=== PATIENT | female | born 1980 | race Caucasian/White ===

== ENCOUNTER → 2020-10-24 | Outpatient (CLI) | payer BC ==
[2020-10-24 15:55] LABS: Basophils # (A) 0.04 X 10*3/uL (0.00-0.10); Basophils % (A) 0.6 %; Eosinophils # (A) 0.13 X 10*3/uL (0.04-0.35); Eosinophils % (A) 1.9 %; HCT 43.7 % (37.2-46.3); HGB 14.3 g/dL (12.0-15.0); Lymphocytes # (A) 2.27 X 10*3/uL (0.90-5.00); Lymphocytes % (A) 32.9 %; MCH 29.7 pg (27.0-32.0); MCHC 32.7 g/dL (32.0-37.0); MCV 90.9 fL (80.0-97.0); Monocytes # (A) 0.61 X 10*3/uL (0.20-1.00); Monocytes % (A) 8.9 %; Neutrophils # (A) 3.83 X 10*3/uL (1.80-7.70); Neutrophils % (A) 55.6 %; Platelet Count 313 X 10*3/uL (140-440); RBC 4.81 X 10*6/uL (4.10-5.20); RDW 12.9 % (11.5-14.5); Reticulocyte % 1.38 % (0.10-1.80); WBC 6.89 X 10*3/uL (4.50-10.00)
[2020-10-24 16:47] LABS: ALT 24 U/L (8-44); AST 19 U/L (13-35); African American GFR (CKD) 72.2 (60.0-200.0); Albumin/Globulin Ratio 1.68 (1.60-3.17); Alkaline Phosphatase 63 U/L (41-126); BUN/Creat Ratio 14.55 Ratio (12.00-20.00); C Reactive Protein <0.4 mg/dL (0.0-0.8); Calcium 9.6 mg/dL (8.7-10.3); Carbon Dioxide 20.5 mmol/L (21.6-31.8); Chloride 108 mmol/L (96-109); Creatine Kinase 54 U/L (26-186); Ferritin 18.2 ng/mL (10.0-291.0); Folate, Serum 19.7 ng/mL; Globulin 2.8 g/dL (1.6-3.3); Glucose 107 mg/dL (70-110); Iron 78 ug/dL (50-170); Non-African American GFR(CKD) 62.3 (60.0-200.0); Potassium 3.9 mmol/L (3.5-5.5); Sodium 138 mmol/L (135-145); Total Bilirubin 0.4 mg/dL (0.3-1.2); Total Iron Binding Capacity 396 ug/dL (228-460); Total Protein 7.5 g/dL (6.2-8.2)
== END | disposition home or self-care (01) ==
LOC: LABWHC1 09:51
PROVIDERS: ATTEND Psychiatry & Neurology Pain Medicine
DX: R53.83 Other fatigue (principal); Z51.81 Encounter for therapeutic drug level monitoring
CPT/HCPCS: 36415; 80053; 82306; 82533; 82550; 82607; 82626; 82668; 82728; 82746; 83036; 83540; 83550; 83921; 84207; 84439; 84443; 84466; 84481; 85025; 85045; 86140